=== PATIENT | male | born 1940 | race Two or more races ===

== ENCOUNTER 2017-04-20 02:50 | Inpatient (IN) | payer BC, OTHER ==
[~2017-04-20] VITALS: Ht 170.2 cm; Wt 77.5 kg
[2017-04-20 03:50] LABS: Basophils # (auto) 0 uL; Basophils % (auto) 0.3 % (0.0-2.0); Eosinophils # (auto) 0 uL; Eosinophils % (auto) 0.2 % (0.0-7.0); Hematocrit 40.5 % (41.0-53.0); Hemoglobin 13.9 g/dL (13.5-17.5); Lymphocytes # (auto) 0.3 uL; Lymphocytes % (auto) 4.9 % (10.0-50.0); Mean Corpuscular Hemoglobin 31.8 pg (28.0-32.0); Mean Corpuscular Hgb Conc. 34.4 g/dL (32.0-36.0); Mean Corpuscular Volume 92.5 fL (80.0-100.0); Monocytes # (auto) 0 uL; Monocytes % (auto) 0.7 % (0.0-12.0); Neutrophils % (auto) 93.9 % (37.0-80.0); Platelet Count (auto) 156 10^3/uL (140-450); Red Blood Cells 4.38 10^6/uL (4.5-5.90); Red Cell Distribution Width 12.9 % (11.8-14.3); White Blood Cell 6.4 10^3/uL (4.4-10.8)
[2017-04-20 04:02] LABS: Albumin 2.9 g/dL (3.4-5.0); Calcium 8.4 mg/dL (8.5-10.1); Potassium 3.7 mmol/L (3.5-5.1)
[2017-04-20 04:13] LABS: Total Protein 7.3 g/dL (6.4-8.2)
[2017-04-20] MEDS ORDERED: SODIUM CHLORIDE 0.9% 1,000 ML IV ONE (06:30)
[2017-04-20] MEDS ORDERED: HYDROcodone-ACET 5/325MG TAB PO PRN (12:00)
[2017-04-20] MEDS ORDERED: DOCUSATE SOD 100 MG CAP PO PRN (12:00)
[2017-04-20] MEDS: Boost Glucose Control 8 Ounces PO SCH ×2 (12:00→18:00)
[2017-04-20] MEDS ORDERED: cloNIDine HCL 0.1 MG TAB PO PRN (12:00)
[2017-04-20] MEDS ORDERED: MORPHINE SULFATE 4 MG/ML SYR/VIAL IV PRN ×2 (12:00)
[2017-04-20] MEDS ORDERED: DEXTROSE (50%) 50ML SYRG IV PRN (12:00)
[2017-04-20] MEDS ORDERED: cefTRIAXone 1GM/10ml IVPUSH 10 ML IV ONE (12:00)
[2017-04-20] MEDS ORDERED: ACETAMINOPHEN 325 MG TAB PO PRN (12:00)
[2017-04-20] MEDS ORDERED: TEMAZEPAM 15 MG CAP PO PRN (12:00)
[2017-04-20] MEDS ORDERED: NITROGLYCERIN 0.4 MG SL TAB SL PRN (12:00)
[2017-04-20] MEDS ORDERED: ONDANSETRON HCL 4 MG/2 ML VIAL IV PRN (12:00)
[2017-04-20] MEDS ORDERED: ASCORBIC ACID 500 MG TAB PO ONE (12:45)
[2017-04-20] MEDS ORDERED: ZINC SULFATE 220 MG CAP PO ONE (12:45)
[2017-04-20] MEDS ORDERED: MULTIPLE VITAMIN TAB PO ONE (12:45)
[2017-04-20 12:59] LABS: INR 1.11 (0.9-1.15); Prothrombin Time 12.1 sec (9.37-12.3)
[2017-04-20] MEDS ORDERED: FAMOTIDINE 20 MG TAB PO ONE (13:00)
[2017-04-20] MEDS: SODIUM CHLORIDE 0.9% 1,000 ML IV SCH (13:18)
[2017-04-20] MEDS: metroNIDAZOLE 500MG/100ML 100 ML IV SCH ×2 (14:35→22:20)
[2017-04-20] MEDS: ACCU-CHEK COMFORT CURVE STRIP VI SCH ×2 (16:46→22:20)
[2017-04-20] MEDS: InsuLIN REG 1unit/0.01ml Soln (100units/ml) SC SCH ×2 (16:46→22:20)
[2017-04-20 17:47] VITALS: BP 116/52
[2017-04-20] MEDS ORDERED: ONDA4TAB5 PO (18:00)
[2017-04-20] MEDS ORDERED: METF-370 PO (18:00)
[2017-04-20 21:52] VITALS: BP 107/57
[2017-04-20] MEDS: ASCORBIC ACID 500 MG TAB PO SCH (22:20)
[2017-04-20] MEDS: FAMOTIDINE 20 MG TAB PO SCH (22:20)
[2017-04-21] MEDS ORDERED: VANCOMYCIN PER PHARMACY 0 MG IV SCH (01:00)
[2017-04-21] MEDS ORDERED: VANCOMYCIN 1GM/250ML 250 ML IV ONE ×2 (01:45→03:46)
[2017-04-21] MEDS: SODIUM CHLORIDE 0.9% 1,000 ML IV SCH ×2 (04:39→21:19)
[2017-04-21 05:00] VITALS: BP 108/59
[2017-04-21] MEDS: metroNIDAZOLE 500MG/100ML 100 ML IV SCH ×3 (06:18→22:46)
[2017-04-21] MEDS: ACCU-CHEK COMFORT CURVE STRIP VI SCH ×3 (06:18→22:46)
[2017-04-21] MEDS: InsuLIN REG 1unit/0.01ml Soln (100units/ml) SC SCH ×3 (06:18→22:47)
[2017-04-21 06:22] LABS: Basophils # (auto) 0.1 uL; Basophils % (auto) 0.7 % (0.0-2.0); Eosinophils # (auto) 0.1 uL; Eosinophils % (auto) 1.1 % (0.0-7.0); Hematocrit 35.1 % (41.0-53.0); Lymphocytes # (auto) 1.3 uL; Lymphocytes % (auto) 16.6 % (10.0-50.0); Mean Corpuscular Hemoglobin 31.4 pg (28.0-32.0); Mean Corpuscular Hgb Conc. 34.2 g/dL (32.0-36.0); Mean Corpuscular Volume 91.8 fL (80.0-100.0); Monocytes # (auto) 0.7 uL; Monocytes % (auto) 9.2 % (0.0-12.0); Neutrophils # (auto) 5.8 uL; Neutrophils % (auto) 72.4 % (37.0-80.0); Platelet Count (auto) 97 10^3/uL (140-450); Red Blood Cells 3.83 10^6/uL (4.5-5.90); Red Cell Distribution Width 13.2 % (11.8-14.3)
[2017-04-21 06:45] LABS: Potassium 3.3 mmol/L (3.5-5.1)
[2017-04-21 06:51] LABS: Albumin 2.3 g/dL (3.4-5.0); BUN/Creatinine Ratio 17.7; Calcium 7.8 mg/dL (8.5-10.1)
[2017-04-21 06:54] LABS: Bilirubin, Total 0.7 mg/dL (0.2-1.0); Total Protein 6.2 g/dL (6.4-8.2)
[2017-04-21] MEDS: Boost Glucose Control 8 Ounces PO SCH ×3 (08:00→18:00)
[2017-04-21 08:29] VITALS: BP 102/59
[2017-04-21] MEDS ORDERED: VANCOMYCIN 1,250 MG in D5W 5% 250 ML IV SCH (09:00)
[2017-04-21] MEDS: VANCOMYCIN 1,250 MG in D5W 5% 250 ML IV SCH (09:31)
[2017-04-21] MEDS: cefTRIAXone 1GM/10ml IVPUSH 10 ML IV SCH (09:31)
[2017-04-21] MEDS: ASCORBIC ACID 500 MG TAB PO SCH ×2 (11:03→22:45)
[2017-04-21] MEDS: FAMOTIDINE 20 MG TAB PO SCH ×2 (11:03→22:45)
[2017-04-21] MEDS: ZINC SULFATE 220 MG CAP PO SCH (11:03)
[2017-04-21] MEDS: MULTIPLE VITAMIN TAB PO SCH (11:03)
[2017-04-21 12:21] VITALS: BP 102/54
[2017-04-21 16:19] VITALS: BP 140/70
[2017-04-21 22:00] VITALS: BP 134/69
[2017-04-22 05:00] VITALS: BP 136/72
[2017-04-22 05:51] LABS: Basophils # (auto) 0.1 uL; Basophils % (auto) 0.9 % (0.0-2.0); Eosinophils # (auto) 0.1 uL; Eosinophils % (auto) 1.5 % (0.0-7.0); Hematocrit 37.1 % (41.0-53.0); Hemoglobin 12.6 g/dL (13.5-17.5); Lymphocytes % (auto) 19.1 % (10.0-50.0); Mean Corpuscular Hemoglobin 31.3 pg (28.0-32.0); Mean Corpuscular Hgb Conc. 34.1 g/dL (32.0-36.0); Mean Corpuscular Volume 91.8 fL (80.0-100.0); Monocytes # (auto) 0.7 uL; Monocytes % (auto) 13.1 % (0.0-12.0); Neutrophils # (auto) 3.6 uL; Neutrophils % (auto) 65.4 % (37.0-80.0); Platelet Count (auto) 94 10^3/uL (140-450); Red Blood Cells 4.04 10^6/uL (4.5-5.90); Red Cell Distribution Width 13.4 % (11.8-14.3); White Blood Cell 5.5 10^3/uL (4.4-10.8)
[2017-04-22] MEDS: metroNIDAZOLE 500MG/100ML 100 ML IV SCH (06:00)
[2017-04-22] MEDS: ACCU-CHEK COMFORT CURVE STRIP VI SCH (06:00)
[2017-04-22] MEDS: SODIUM CHLORIDE 0.9% 1,000 ML IV SCH (06:01)
[2017-04-22 06:11] LABS: Albumin 2.4 g/dL (3.4-5.0); Calcium 7.8 mg/dL (8.5-10.1); Potassium 3.4 mmol/L (3.5-5.1)
[2017-04-22] MEDS: InsuLIN REG 1unit/0.01ml Soln (100units/ml) SC SCH (06:12)
[2017-04-22 06:22] LABS: BUN/Creatinine Ratio 12.7; Bilirubin, Total 0.7 mg/dL (0.2-1.0); Total Protein 6.3 g/dL (6.4-8.2)
[2017-04-22 08:00] VITALS: BP 118/62
[2017-04-22 08:55] VITALS: BP 118/62
[2017-04-22] MEDS: FAMOTIDINE 20 MG TAB PO SCH (09:20)
[2017-04-22] MEDS: MULTIPLE VITAMIN TAB PO SCH (09:20)
[2017-04-22] MEDS: VANCOMYCIN 1,250 MG in D5W 5% 250 ML IV SCH (09:20)
[2017-04-22] MEDS: ASCORBIC ACID 500 MG TAB PO SCH (09:20)
[2017-04-22] MEDS: cefTRIAXone 1GM/10ml IVPUSH 10 ML IV SCH (09:20)
[2017-04-22] MEDS: ZINC SULFATE 220 MG CAP PO SCH (09:20)
[2017-04-22 11:28] VITALS: BP 103/59
== END 2017-04-22 13:55 | disposition home or self-care (01) | DRG 871 ==
LOC: ER 02:50 → EDBD 02:50 → EDUNIT# 02:50 → OVERFLOW 02:51 → WEST WING 17:51
PROVIDERS: ADMIT Internal Medicine; ATTEND Family Medicine
DX: A41.9 Sepsis, unspecified organism (principal); E43 Unspecified severe protein-calorie malnutrition; K80.00 Calculus of gallbladder with acute cholecystitis without obstruction; C25.9 Malignant neoplasm of pancreas, unspecified; E11.65 Type 2 diabetes mellitus with hyperglycemia; D63.8 Anemia in other chronic diseases classified elsewhere; E86.0 Dehydration; E87.1 Hypo-osmolality and hyponatremia; E83.51 Hypocalcemia; I10 Essential (primary) hypertension; N40.0 Benign prostatic hyperplasia without lower urinary tract symptoms; Z80.9 Family history of malignant neoplasm, unspecified; Z92.21 Personal history of antineoplastic chemotherapy; Z68.26 Body mass index [BMI] 26.0-26.9, adult; Z79.4 Long term (current) use of insulin
CPT/HCPCS: 36415; 74176; 76705; 80053; 82150; 82962; 83036; 83690; 85025; 85610; 87040; 87076; 87077; 87081; 87186; 93005; 94761; 96361; 96372; 96374; 96375; 97163; J1815; J3490; J7060